=== PATIENT | male | born 1940 | race Caucasian/White ===

== ENCOUNTER 2017-05-26 22:05 | Emergency (ER) | payer BC ==
[~2017-05-26] VITALS: Ht 172.7 cm; Wt 117.0 kg
[~2017-05-26 22:05] MED LIST: BETIMOL5 M1 OU; COUMADIN7.5 MG PO; LOVENOX60 MG/0.6 SC; MYRBETRIQ25 MG PO; PANTOPRAZOLE SO40 MG PO; PLAVIX75 MG PO
--- OUTSIDE RECORDS SUMMARY | 2017-05-26 22:08 | XMS REPORT | Clinical Summary ---
Author Author [facility] Organization [facility] Address Unknown Phone Unavailable Care Team Providers Care Pharmacy General Manager Name Role Phone Yifan Nielsen MD PCP Allergies No Known Allergies Current Medications Prescription Sig. Disp. Refills Start End Date Status Date oxyCODone (ROXICODONE) 20 Take 20 mg by mouth every 0 12/19/19 Active MG tablet morning. 17 OXYCONTIN 30 mg Take 30 mg by mouth 0 12/19/19 Active tablet,oral nightly. 17 only,ext.rel.12 hr ER tablet pantoprazole (PROTONIX) Take 40 mg by mouth every 3 10/27/19 Active 40 MG EC tablet morning. 17 COUMADIN 5 mg tablet Take 5 mg by mouth daily. 3 12/18/19 Active Monitor INR at home and 17 take 5-7.5mg based on level. mirabegron (MYRBETIQ) 50 Take 50 mg by mouth Active mg tablet extended nightly. release 24 hr nitrofurantoin, Take 100 mg by mouth 2 0 12/27/19 Active macrocrystal-monohydrate, (two) times a day. Take 17 (MACROBID) 100 MG capsule for 14 days starting 12/26/16. citalopram (CeleXA) 20 MG Take 20 mg by mouth as 12/31/19 Active tablet needed. 17 clopidogrel (PLAVIX) 75 Take 75 mg by mouth 1 10/13/19 Active mg tablet nightly. 17 clotrimazole (LOTRIMIN) 1 Use small amount at 0 12/05/19 Active % cream night. 17 nitroglycerin (NITROMIST) Place 1 spray under the 0 11/10/19 Active 400 mcg/spray tongue as needed. As 17 aerosol,spray needed for chest pain. timolol (TIMOPTIC) 0.25 % Administer 1 drop to both 7 12/17/19 Active ophthalmic solution eyes nightly. 17 traMADol (ULTRAM) 50 mg Take 50 mg by mouth every 0 12/30/19 Active tablet 4 (four) hours as needed. 17 HYDROcodone-acetaminophen Take 1 tablet by mouth 60 tablet 11/12/19 12/12/19 (NORCO) 5-325 mg per every 4 (four) hours as 17 17 tablet needed for moderate pain for up to 30 days. Max Daily Amount: 6 tablets ciprofloxacin HCl (CIPRO) Take 250 mg by mouth 0 12/21/19 01/08/20 Discontin 250 MG tablet every 12 (twelve) hours. 17 17 ued Take for 7 days starting 12/20/16. testosterone 10 mg/0.5 Place 3 Act on the skin 2 11/11/19 04/01/20 Discontin gram /actuation gel in daily. To be replaced by 17 17 ued metered-dose pump seeds (Dr. Wesley Cardoso) Active Problems Problem Noted Date Anemia 01/05/2017 Osteoarthritis of spine with radiculopathy, lumbar region 11/11/2016 Status post lumbar spinal fusion 11/11/2016 H/O total hip arthroplasty 11/11/2016 Tendinitis of finger 08/11/2016 Trigger middle finger of right hand 02/25/2016 Encounters Date Type Specialty Care Team Description 04/21/2017 Office Visit Orthopedic Surgery Jas Shirley MD Trigger middle finger of right hand (Primary Dx);Tendinitis of finger 04/01/2017 [facility] Orthopedic Surgery Jas Shirley MD Encounter 04/01/2017 Anesthesia Orthopedic Surgery Luigi Jones, Event SOFT BOARDER 04/01/2017 Procedure Pass Orthopedic Surgery 04/01/2017 Surgery Orthopedic Surgery Jas Shirley MD RIGHT MIDDLE FINGER TRIGGER RELEASE AND ANY INDICATED PROCEDURES 03/23/2017 Office Visit Orthopedic Surgery Jas Shirley MD Trigger middle finger of right hand (Primary Dx);Tendinitis of finger 01/05/2017 [facility] General Internal Medicine Yaya Graham MD Iron deficiency anemia - Encounter due to chronic blood loss 01/07/2017 (Primary Dx) 11/24/2016 Telephone Neurosurgery Rafiq Kasper MD 11/20/2016 [facility] Radiology Rafiq Kasper MD Osteoarthritis of spine Encounter with radiculopathy, lumbar region;Status post lumbar spinal fusion 11/20/2016 Hospital Radiology Rafiq Kasper MD Osteoarthritis of spine Encounter with radiculopathy, lumbar region;Status post lumbar spinal fusion 11/11/2016 Office Visit Neurosurgery Rafiq Kasper MD Osteoarthritis of spine with radiculopathy, lumbar region (Primary Dx);Status post lumbar spinal fusion;H/O total hip arthroplasty, bilateral 11/11/2016 Procedure Pass Radiology 08/11/2016 Office Visit Orthopedic Surgery Jas Shirley MD Trigger middle finger of right hand (Primary Dx);Tendinitis of finger;Pain of finger of right hand after 05/25/2016 Family History Medical History Relation Name Comments Heart attack Father Cancer Mother oral Other Mother Heart problems Peripheral vascular Mother disease Relation Name Status Comments Father Mother Social History Tobacco Use Types Packs/Day Years Used Date Never Smoker Alcohol Use Drinks/Week oz/Week Comments Yes 1 Cans of 0.6 beer Sex Assigned at Date Recorded Not on file Last Filed Vital Signs Vital Sign Reading Time Taken Blood Pressure 100/55 04/01/2017 9:15 AM [facility] Pulse 69 04/01/2017 9:25 AM [facility] Temperature 36.4 C (97.5 F) 04/01/2017 9:25 AM [facility] Respiratory Rate 16 04/01/2017 9:25 AM [facility] Oxygen Saturation 94% 04/01/2017 9:25 AM [facility] Inhaled Oxygen - - Concentration Weight 107 kg (234 lb 12.8 oz) 01/05/2017 4:55 PM CDT Height 172.7 cm (5' 8") 04/01/2017 7:44 AM [facility] Body Mass Index - - Plan of Treatment Date Type Specialty Care Team Description 06/02/2017 Office Visit Orthopedic Surgery Param Oliva MD [address] [place] [phone] Health Maintenance Due Date Last Done Comments ZOSTER VACCINE 1999 PNEUMOCOCCAL 08/23/2004 POLYSACCHARIDE VACCINE AGE 65 AND OVER PNEUMOCOCCAL-13 08/23/2004 INFLUENZA VACCINE 11/17/2016 02/26/2016, 03/06/2014 Procedures Procedure Name Priority Date/Time Associated Diagnosis Comments ANESTHESIA PERIPHERAL Routine 04/01/2017 BLOCK 8:12 AM [facility] P[facility]ER Procedure Note - Luigi Jones CRNA - 04/01/2017 8:11 AM [facility] Peripheral Block Performed by: LUIGI JONES Authorized by: CORINNE GUY Patient location: OR 5. Start Time: 04/01/2017 8:11 AM End Time: 04/01/2017 8:14 AM Reason for Block: at surgeon's request Staff: Dc mejia: CORINNE GUY Performed by: Anesthesikarol mejia Preprocedu re: patient identified , IV checked, site and side verified, risks and benefits discussed, procedure verified, surgical consent complete, patient position confirmed, monitors and equipment checked, pre-op evaluation complete and site marked Time Out Performed: 8:10 AM Peripheral Nerve Block: Patient Position: Supine Prep: alcohol swabs Monitoring : Heart rate, CO2, continuous pulse oximetry and blood pressure monitoring Block Type: Alia block Laterality : Right Injection Technique: Single injection Needle: Needle Gauge: 22 G Assessment : Injection Assessment : No symptoms of intraneura l/intraven ous injection Paresthesi a Pain: None Heart Rate Change: No Slow Fractionat ed Injection: Yes Block outcome: No apparent complicati ons, patient comfortabl e and patient tolerated procedure well Notes: R-UE esmarc exsang/margarita r upx2/IV lidocaine RIGHT MIDDLE FINGER 04/01/2017 RIGHT MIDDLE TRIGGER TRIGGER RELEASE AND ANY 7:30 AM [facility] FINGER M65.331 INDICATED PROCEDURES NV INJECT TENDON Routine 08/11/2016 Trigger middle finger of Results for this SHEATH/LIGAMENT 9:58 AM CDT right hand procedure are in the Tendinitis of finger results section. after 05/25/2016 Results * Partial thromboplastin time, activated (04/01/2017 2:15 AM) Component Value Ref Range PTT 33.0 23.0 - 36.0 sec Comment: PTT therapeutic range for unfractionated heparin is 61.0-112.0 seconds which corresponds to Anti-Xa 0.3-0.7 U/ml. Specimen Performing Laboratory Blood [facility] DEPARTMENT OF PATHOLOGY AND GENOMIC MEDICINE [address] [place] [address] * Prothrombin time with INR (04/01/2017 2:15 AM) Only the most recent of 2 results within the time period is included. Component Value Ref Range Prothrombin time 14.7 12.0 - 15.0 sec INR 1.1 Comment: The International Normalized Ratio (INR) is a therapeutic monitoring tool for patients who are stable on oral anticoagulant therapy. An INR of 2.0-3.0 is suggested for deep vein thrombosis/pulmonary embolism. Specimen Performing Laboratory Blood [facility] DEPARTMENT OF PATHOLOGY AND GENOMIC MEDICINE [address] [place] [address] * Hemoglobin & hematocrit (01/07/2017 5:30 AM) Component Value Ref Range HGB 8.2 (L) 14.0 - 18.0 g/dL HCT 27.1 (L) 41.0 - 51.0 % Specimen Performing Laboratory Blood [facility] DEPARTMENT OF PATHOLOGY AND [facility] [address] [place] [address] * Pv duplex venous lower extremity (01/06/2017 8:49 AM) Specimen Performing Laboratory [facility] [address] [place] [address] Narrative Vascular Ultrasound Laboratory Lower Extremity Venous Report [address] [place] [address] Pat.Name:TAYLOR SHEN Pat.ID:[id number] St.Date: 01/06/2017 Refer.MD:YAYA GRAHAM MD Exam Time: 8:11:00 AMStudy Type:LE Venous Weight:234lb DOBAge:1940 ,76Y Sex: MALESonogrphr: Ashley Carrasco RVT Pat. Stat.:Inpatient Room:[address] TapeVol: , [facility] - 4: [address] Echo Event ID:[id number] Order ID:[id number] Reason for Study:Bilateral leg swelling. Race:C SUMMARY: DUPLEX SCAN OBSERVATIONS Deep VeinsSuperficial Veins RightLeft RightLeft EIV GSV (prox) NormalNormal CFV Normal Normal (above knee) Femoral Normal Normal GSV (dist) Normal Normal Profunda Normal Normal (below knee) Popliteal Normal Normal PT (prox) Normal NormalSSV Normal Normal PT (dist) Normal Normal Peroneal Normal Not Visualized RIGHT: There is normal compressibility with no evidence of echogenic material noted within the lumen of the visualized veins.Colorflow and Doppler signals are normal. LEFT: There is normal compressibility with no evidence of echogenic material noted within the lumen of the visualized veins. Colorflow and Doppler signals are normal. Peroneal vein is not well visualized. PRELIMINARY FINDINGS 1. No evidence of deep venous thrombosis of the visualized veins. PHYSICIAN INTERPRETATION Venous examination of the both lower extremities demonstrated no evidence of venous thrombosis in the visualized veins. Signed 01/06/2017 11:02 AM Berto Morejon MD, RPVI Procedure Note Interface, Radiology Results In - 01/06/2017 11:03 AM CDT Vascular Ultrasound Laboratory Lower Extremity Venous Report [address] [place] [address] Pat.Name: TAYLOR SEHN.ID: [id number] .Date: 01/06/2017 Refer.MD: YAYA GRAHAM MD Exam Time: 8:11:00 AM Study Type:LE Venous Weight: 234lb Age: 5 1940,76Y Sex: MALE Sonogrphr: Ashley Carrasco RVT Pat. Stat.:Inpatient Room: [address] Tape Vol: YM, CPT - 4: [id number] Echo Event ID:[id number] Order ID: [id number] Reason for Study:Bilateral leg swelling. Race: C SUMMARY: DUPLEX SCAN OBSERVATIONS Deep Veins Superficial Veins Right Left Right Left EIV GSV (prox) Normal Normal CFV Normal Normal (above knee) Femoral Normal Normal GSV (dist) Normal Normal Profunda Normal Normal (below knee) Popliteal Normal Normal PT (prox) Normal Normal SSV Normal Normal PT (dist) Normal Normal Peroneal Normal Not Visualized RIGHT: There is normal compressibility with no evidence of echogenic material noted within the lumen of the visualized veins. Colorflow and Doppler signals are normal. LEFT: There is normal compressibility with no evidence of echogenic material noted within the lumen of the visualized veins. Colorflow and Doppler signals are normal. Peroneal vein is not well visualized. PRELIMINARY FINDINGS 1. No evidence of deep venous thrombosis of the visualized veins. PHYSICIAN INTERPRETATION Venous examination of the both lower extremities demonstrated no evidence of venous thrombosis in the visualized veins. Signed 01/06/2017 11:02 AM Berto Morejon MD, RPVI * Transfuse RBC (01/06/2017 8:03 AM) * Manual differential (01/06/2017 7:20 AM) Component Value Ref Range Manual differential PERFORMED Neutrophils 84.0 (H) 39.0 - 69.0 % Lymphocytes 7.0 (L) 25.0 - 45.0 % Monocytes 7.0 0.0 - 10.0 % Eosinophils 2.0 0.0 - 5.0 % Basophils 0.0 0.0 - 1.0 % Metamyelocytes 0 % Promyelocytes 0 % Platelet slide review Juan Antonio adequate Anisocytosis Moderate Polychromasia Moderate Ovalocytes Moderate Specimen Performing Laboratory [facility] DEPARTMENT OF PATHOLOGY AND GENOMIC MEDICINE [address] [place] [address] * CBC with platelet and differential (01/06/2017 7:20 AM) Only the most recent of 2 results within the time period is included. Component Value Ref Range WBC 5.41 4.50 - 11.00 k/uL RBC 2.74 (L) 4.40 - 6.00 m/uL HGB 7.9 (L) 14.0 - 18.0 g/dL HCT 25.9 (L) 41.0 - 51.0 % MCV 94.5 82.0 - 100.0 fL MCH 28.8 27.0 - 34.0 pg MCHC 30.5 (L) 31.0 - 37.0 g/dL RDW - SD 54.2 37.0 - 55.0 fL MPV 10.9 8.8 - 13.2 fL Platelet count 179 150 - 400 k/uL Nucleated RBC 0.00 /100 WBC Neutrophils 84.0 (H) 39.0 - 69.0 % Lymphocytes 7.0 (L) 25.0 - 45.0 % Monocytes 7.0 0.0 - 10.0 % Eosinophils 2.0 0.0 - 5.0 % Basophils 0.0 0.0 - 1.0 % Specimen Performing Laboratory Blood [facility] DEPARTMENT OF PATHOLOGY AND GENOMIC MEDICINE [address] [place] [address] * Estimated GFR (01/06/2017 4:00 AM) Component Value Ref Range GFR Non Af Amer 65 mL/min/1.73 m2 GFR Af Amer 79 mL/min/1.73 m2 Comment: Chronic kidney disease: <60 mL/min/1.73m2 Kidney failure: <15 mL/min/1.73m2 The estimated GFR is calculated from the IDMS-traceable Modification of Diet in Renal Disease Equation. The accuracy of the calculation is poor when the creatinine is normal. Calculated values >90 mL/min/1.73m2 are not reported. This equation has not been validated in children (<18 years), women, the elderly (>70 years), or ethnic groups other than Caucasians and Americans. Specimen Performing Laboratory Plasma specimen [facility] DEPARTMENT OF PATHOLOGY AND GENOMIC MEDICINE [address] [place] [address] * Basic metabolic panel (01/06/2017 4:00 AM) Component Value Ref Range Sodium 140 135 - 148 mEq/L Potassium 4.1 3.5 - 5.0 mEq/L Chloride 102 98 - 112 mEq/L CO2 24 24 - 31 mEq/L Anion gap 14 7 - 15 mEq/L Comment: Starting from July , anion gap calculation no longer incorporates potassium. Please note the change. BUN 14 8 - 23 mg/dL Creatinine 1.1 0.7 - 1.2 mg/dL Glucose 110 (H) 65 - 99 mg/dL Calcium 8.7 (L) 8.8 - 10.2 mg/dL Specimen Performing Laboratory Plasma specimen [facility] DEPARTMENT OF PATHOLOGY AND GENOMIC MEDICINE [address] [place] [address] * Occult blood, stool (01/06/2017 3:00 AM) Component Value Ref Range Occult blood, stool Negative for occult blood. Comment: Specimen Information Specimen Source: Stool Specimen Site: Nonpreserved Specimen Performing Laboratory Stool - Nonpreserved [facility] DEPARTMENT OF PATHOLOGY AND [facility] [address] [place] [address] * Urinalysis screen and microscopy, with reflex to culture (01/05/2017 8:26 PM) Component Value Ref Range Specimen site Clean catch Color, UA Straw Appearance, UA Clear Specific gravity, UA 1.009 1.001 - 1.035 pH, UA 7.0 5.0 - 8.5 Protein, UA Negative Negative Glucose, UA Negative Negative Ketones, UA Negative Negative Bilirubin, UA Negative Negative Blood, UA Negative Negative Nitrite, UA Negative Negative Urobilinogen, UA <2.0 <2.0 Leukocyte esterase, UA Large (A) Negative Epithelial cells, UA <1 /HPF WBC, UA 120 (H) 0 - 1 /HPF RBC, UA 2 (H) 0 - 1 /HPF Bacteria, UA None seen None seen Yeast, UA None seen Yeast with pseudohyphae, None seen UA Specimen Performing Laboratory Urine [facility] DEPARTMENT OF PATHOLOGY AND [facility] [address] [place] [address] * Gram stain (01/05/2017 8:26 PM) Component Value Ref Range Gram stain result Few WBC's No organisms seen Comment: Specimen Information Specimen Source: Urine Specimen Site: See UA Specimen Performing Laboratory Urine [facility] DEPARTMENT OF PATHOLOGY [facility] [address] [place] [address] * Prepare RBC, 2 Units (01/05/2017 8:26 PM) Component Value Ref Range Product name Red Blood Cells -1, Leukored Unit number [id number] Product code [id number] Dispense status Transfused Blood expiration date 20170205 Blood type code 5100 Blood type O POSITIVE Product name Red Blood Cells -1, Leukored Unit number [id number] Product code [id number] Dispense status Transfused Blood expiration date 20170205 Blood type code 5100 Blood type O POSITIVE Specimen Performing Laboratory [facility] DEPARTMENT OF PATHOLOGY [facility] [address] [place] [address] * Type and screen (01/05/2017 8:26 PM) Component Value Ref Range ABO grouping O Rh type POS Antibody screen (gel) NEG Specimen Performing Laboratory Blood [facility] DEPARTMENT OF PATHOLOGY [facility] [address] [place] [address] * Urine culture (01/05/2017 8:26 PM) Component Value Ref Range Urine culture isolate Gram negative rods <10-1 cfu/ml (A) Comment: Specimen Information Specimen Source: Urine Specimen Site: See UA Urine culture isolate Mixed Gram positive damián 10-5 cfu/ml (A) Specimen Performing Laboratory Urine [facility] DEPARTMENT OF PATHOLOGY AND GENOMIC MEDICINE [address] [place] [address] * XR Lumbar Spine 2 Or 3 Vw (11/20/2016 11:21 AM) Specimen Performing [facility] [address] [place] [address] Narrative EXAMINATION: XR LUMBAR SPINE 2 OR 3 VW CLINICAL HISTORY: M47.26 Other spondylosis with radiculopathylumbar region, Z98.1 Arthrodesis status, FOLLOW UP LUMBAR SPINE FUSION COMPARISON:12/14/2014 IMPRESSION: 3 views lumbar spine are interpreted. No significant interval change is seen. There is mild convex right scoliotic curvature of the upper lumbar spine. Again noted is posterior fusion involving L2-L5. Pedicle screws are connected with vertical rods. Interbody fusions of L2-L5 are also again seen. Majority is difficult to assess. Some calcific density is noted over each of the interbody levels. Laminectomies of L2, L3, and L4 are again seen. Alignment appears anatomic. Prominent disc degenerative changes are present in L1-2. There is collapse of the L5-S1 interbody space. 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 [id number] Procedure Note Interface, Radiology Results Incoming - 11/20/2016 11:43 AM CDT EXAMINATION: XR LUMBAR SPINE 2 OR 3 VW CLINICAL HISTORY: M47.26 Other spondylosis with radiculopathy lumbar region, Z98.1 Arthrodesis status, FOLLOW UP LUMBAR SPINE FUSION COMPARISON: 12/14/2014 IMPRESSION: 3 views lumbar spine are interpreted. No significant interval change is seen. There is mild convex right scoliotic curvature of the upper lumbar spine. Again noted is posterior fusion involving L2-L5. Pedicle screws are connected with vertical rods. Interbody fusions of L2-L5 are also again seen. Majority is difficult to assess. Some calcific density is noted over each of the interbody levels. Laminectomies of L2, L3, and L4 are again seen. Alignment appears anatomic. Prominent disc degenerative changes are present in L1-2. There is collapse of the L5-S1 interbody space. 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 [id number] * MRI Lumbar Spine Wo Contrast (11/20/2016 10:24 AM) Specimen Performing Laboratory [facility] [address] [place] [address] Narrative EXAMINATION: MRI LUMBAR SPINE WO CONTRAST CLINICAL HISTORY: M47.26 Other spondylosis with radiculopathylumbar region, Z98.1 Arthrodesis status, FOLLOW UP LUMBAR SPINE FUSION COMPARISON:Lumbar myelogram 06/22/2014 TECHNIQUE: Multiplanar multisequence nonenhanced MRI examination was performed of the Lumbar spine. FINDINGS: For the purposes of this report, 5 lumbar type vertebral bodies are assumed and numbered according to the lumbosacral and vertebral morphology. Postsurgical changes of posterior spinal fusion L2-L5 with bilateral rods and screws and decompressive laminectomies L2-L4. Stable alignment within the area of fusion with grade 1 anterolisthesis L4 on L5. No degenerative endplate edema is identified. Fatty filum terminale. Vertebral body heights are maintained without acute fracture.No suspicious osseous lesions. Conus medullaris terminates at the level of L2. Probable seroma within the laminectomy bed measuring 1.2 x 1.4 x 7 cm without mass effect on the thecal sac. Soft tissues shows no mass, adenopathy or aneurysm. Axial images through the disc spaces demonstrate the following: L1-L2: No significant posterior disc disease or spinal canal stenosis. Bilateral facet arthrosis contributes to moderate left neural foraminal stenosis. Patent right neural foramen. L2-L3: No significant posterior disc disease or spinal canal stenosis. Decompressive laminectomy. Mild bilateral neural foraminal stenosis. L3-L4: Decompressive laminectomy patency of the spinal canal. Mild right and at least moderate left neural foraminal stenosis. Susceptibility artifact limits evaluation for nerve impingement. L4-L5: No significant posterior disc disease or spinal canal stenosis. Moderate bilateral neural foraminal stenosis secondary to endplate spurs and facet arthrosis. L5-S1: No significant posterior disc disease the spinal canal stenosis. Mild bilateral neural foraminal narrowing. IMPRESSION: 1. Postsurgical changes of posterior spinal fusion L2-L5 with decompressive laminectomies. 2. Patent spinal canal at all lumbar levels. Multilevel mild to moderate neural foraminal stenoses which are most pronounced on the left at L3-L4 and bilaterally at L4-L5. [id number] Procedure Note Hm Interface, Radiology Results Incoming - 11/20/2016 11:30 AM CDT EXAMINATION: MRI LUMBAR SPINE WO CONTRAST CLINICAL HISTORY: M47.26 Other spondylosis with radiculopathy lumbar region, Z98.1 Arthrodesis status, FOLLOW UP LUMBAR SPINE FUSION COMPARISON: Lumbar myelogram 06/22/2014 TECHNIQUE: Multiplanar multisequence nonenhanced MRI examination was performed of the Lumbar spine. FINDINGS: For the purposes of this report, 5 lumbar type vertebral bodies are assumed and numbered according to the lumbosacral and vertebral morphology. Postsurgical changes of posterior spinal fusion L2-L5 with bilateral rods and screws and decompressive laminectomies L2-L4. Stable alignment within the area of fusion with grade 1 anterolisthesis L4 on L5. No degenerative endplate edema is identified. Fatty filum terminale. Vertebral body heights are maintained without acute fracture. No suspicious osseous lesions. Conus medullaris terminates at the level of L2. Probable seroma within the laminectomy bed measuring 1.2 x 1.4 x 7 cm without mass effect on the thecal sac. Soft tissues shows no mass, adenopathy or aneurysm. Axial images through the disc spaces demonstrate the following: L1-L2: No significant posterior disc disease or spinal canal stenosis. Bilateral facet arthrosis contributes to moderate left neural foraminal stenosis. Patent right neural foramen. L2-L3: No significant posterior disc disease or spinal canal stenosis. Decompressive laminectomy. Mild bilateral neural foraminal stenosis. L3-L4: Decompressive laminectomy patency of the spinal canal. Mild right and at least moderate left neural foraminal stenosis. Susceptibility artifact limits evaluation for nerve impingement. L4-L5: No significant posterior disc disease or spinal canal stenosis. Moderate bilateral neural foraminal stenosis secondary to endplate spurs and facet arthrosis. L5-S1: No significant posterior disc disease the spinal canal stenosis. Mild bilateral neural foraminal narrowing. IMPRESSION: 1. Postsurgical changes of posterior spinal fusion L2-L5 with decompressive laminectomies. 2. Patent spinal canal at all lumbar levels. Multilevel mild to moderate neural foraminal stenoses which are most pronounced on the left at L3-L4 and bilaterally at L4-L5. [id number] * Hand/Upper Extremity Injection/Arthrocentesis (08/11/2016 9:58 AM) Elliott Shirley MD 08/11/20169:58 AM Hand/Upper Extremity Injection/Arthrocentesis Date/Time: 08/11/2016 9:22 AM Consent given by: patient Supporting Documentation Indications: pain Procedure Details Condition: trigger finger Site: R long finger Location: - R long A1 Right side: Needle size: 25 G Approach: anterior Right long finger medications administered: 6 mg betamethasone acet,sod phos 6 mg/mL; 1 mL lidocaine 10 mg/mL (1 %) Patient tolerance: patient tolerated the procedure well with no immediate complications Injection Type: tendon sheath after 05/25/2016 Insurance Payer Benefit Subscriber ID Type Phone Address Plan / Group BCBS BCBS [id number] PPO VASHTI PPO/SON LARES PPO
--- NOTE | 2017-05-26 22:58 | Diagnostic Imaging Report ---
EXAMINATION: Head CT without contrast. HISTORY:Status post fall. COMPARISON:None. TECHNIQUE: Multidetector axial images were obtained from the foramen magnum to the vertex without contrast. The images were reconstructed using brain and bone algorithms. Thin section brain images were reformatted into coronal and sagittal planes. Intravenous contrast: None IMAGE QUALITY: Acceptable. FINDINGS: Skull/scalp: Small right frontal scalp edema/hematoma. Nonspecific few punctate superficial radiopaque densities in the frontal scalp may represent foreign body or debris. No acute depressed or displaced calvarial fracture. Parenchyma: Nonspecific few, scattered supratentorial white matter hypodensity are likely related to small vessel ischemic changes. No acute hemorrhage, mass or acute major vascular territorial infarct. Arteries: Atherosclerotic calcification in bilateral carotid siphon. Dural sinuses: No abnormal density suggestive of thrombosis. Ventricles: Mild compensated dilatation due to volume loss. No hydrocephalus. Extra-axial spaces: No abnormal density. Brain volume: Normal for age. Craniocervical junction: No mass, Chiari malformation, or basilar invagination. Sella: No mass. Paranasal/mastoid sinuses: Near complete opacification of the visualized portion of right maxillary sinus. Moderate mucosal thickening in bilateral anterior ethmoid air cells and left frontal sinus. IMPRESSION: 1. Small right frontal scalp soft tissue edema/hematoma. No acute fracture. 2. No acute posttraumatic intracranial abnormality. Signed by: Dr. Monica Reich M.D. on 05/26/2017 10:55 PM
== END 2017-05-26 23:08 | disposition home or self-care (01) ==
LOC: ER 22:05
DX: S01.01XA Laceration without foreign body of scalp, initial encounter (principal); W01.0XXA Fall on same level from slipping, tripping and stumbling without subsequent striking against object, initial encounter; Y93.01 Activity, walking, marching and hiking; Y92.008 Other place in unspecified non-institutional (private) residence as the place of occurrence of the external cause; I48.91 Unspecified atrial fibrillation; I25.10 Atherosclerotic heart disease of native coronary artery without angina pectoris; K21.9 Gastro-esophageal reflux disease without esophagitis; Z87.19 Personal history of other diseases of the digestive system
CPT/HCPCS: 70450; 99283

== ENCOUNTER 2017-07-07 11:31 | Emergency (ER) | payer BC ==
[~2017-07-07] VITALS: Ht 172.7 cm; Wt 104.3 kg
--- OUTSIDE RECORDS SUMMARY | 2017-07-07 11:35 | XMS REPORT ---
Author Author [facility] Address Unknown Phone Unavailable Care Team Providers Care Media Strategist Name Role Phone ALEKSANDR SMITH Unavailable Unavailable Problems This patient has no known problems. Allergies, Adverse Reactions, Alerts This patient has no known allergies or adverse reactions. Medications This patient has no known medications. Results Test Description Test Time Test Comments Text Results Atomic Results Result Comments CT BRAIN WO [place] [address] Patient Name: TAYLOR VALDERRAMA MR #: [id number] : 1940 Age/Sex: 76/M Req # : [id number] Adm Physician: Ordered by: ALEKSANDR SMITH MD Report # : [id number] Location: ER Room/Bed: Procedure: [id number] CT/CT BRAIN WO Exam Date: 05/26/17 Exam Time: 2228 REPORT STATUS: Signed EXAMINATION: Head CT without contrast. HISTORY:Status post fall. COMPARISON:None. TECHNIQUE: Multidetector axial images were obtained from the foramen magnum to the vertex without contrast. The images were reconstructed using brain and bone algorithms. Thin section brain images were reformatted into coronal and sagittal planes. Intravenous contrast: None IMAGE QUALITY: Acceptable. FINDINGS: Skull/scalp: Small right frontal scalp edema/ hematoma. Nonspecific few punctate superficial radiopaque densities in the frontal scalp may represent foreign body or debris. No acute depressed or displaced calvarial fracture. Parenchyma: Nonspecific few, scattered supratentorial white matter hypodensity are likely related to small vessel ischemic changes. No acute hemorrhage, mass or acute major vascular territorial infarct. Arteries: Atherosclerotic calcification in bilateral carotid siphon. Dural sinuses: No abnormal density suggestive of thrombosis. Ventricles: Mild compensated dilatation due to volume loss. No hydrocephalus. Extra-axial spaces: No abnormal density. Brain volume: Normal for age. Craniocervical junction: No mass, Chiari malformation, or basilar invagination. Sella: No mass. Paranasal/ mastoid sinuses: Near complete opacification of the visualized portion of right maxillary sinus. Moderate mucosal thickening in bilateral anterior ethmoid air cells and left frontal sinus. IMPRESSION: 1. Small right frontal scalp soft tissue edema/hematoma. No acute fracture. 2. No acute posttraumatic intracranial abnormality. Signed by: Dr. Monica Mccoy M.D. on 05/26/2017 10:55 PM Dictated By: MONICA MCCOY MD 1855 Transcribed By: MELQUIADES on 05/26/173 COPY TO: ALEKSANDR SMITH MD
--- OUTSIDE RECORDS SUMMARY | 2017-07-07 11:35 | XMS REPORT | Continuity of Care Document ---
Author Author [facility] Organization [facility] Address [address] [place] [address] Phone Unavailable Care Team Providers Care Electronics Detail Draftsperson Name Role Phone NONSTAFF PCP Unavailable Insurance Providers Guarantor Toñito Shen Address [address] [place] [address] Email [facility] Policy Number [id number] Subscriber's Name Daisy Shen Relationship 01 Group Number [id number] Group Name [employer] Effective Date 06 Advance Directives Directive Response Recorded Date/Time Does the patient have an advance directive? No 04/18/13 2:59pm If yes, is advance directive on file with [facility]? No 12/21/12 8:11am If not on file with [facility] will patient provide a copy? No 12/21/12 8:11am Do you have a Directive to Physician? No 05/26/17 10:04pm Do you have a Medical Power of Electrical Laboratory Technician? No 05/26/17 10:04pm Do you have an out of hospital Do Not Resuscitate Order? No 05/26/17 10:04pm Do you have any special needs we should be aware of? No 05/26/17 10:04pm Do you have a support person here with you today? Yes 05/26/17 10:04pm Did patient receive Notice of Privacy Practices? Yes 05/26/17 10:04pm Did patient receive patient rights and responsibilities? Yes 05/26/17 10:04pm Problems No problem information available. Medications Current Home Medications Medication Dose Units Route Directions Days Qty Instructions Start Date Enoxaparin Sodium (Lovenox) 60 Mg/0.6 Ml Inj 60 Mg Subcutaneously Twice A Day 7 Syr Mirabegron (Myrbetriq) 25 Mg Tab.er.24h 25 Mg Oral Daily Pantoprazole Sodium (Protonix) 40 Mg Tablet.dr 40 Mg Oral Daily Timolol (Betimol) 5 Ml Drops 1 Drop Each Eye Daily Past Home Medications Medication Directions Ordered Status Clopidogrel Bisulfate (Plavix) 75 Mg Tablet, 75 Mg Oral Daily Discontinued Warfarin Sodium (Coumadin) 7.5 Mg Tablet, 7.5 Mg Oral Daily X 2 Discontinued Social History Smoking Status Start Date Stop Date Never Smoker Hospital Discharge Instructions No hospital discharge instruction information available. Plan of Care Discharge Date 05/26/17 11:08pm Disposition HOME, SELF-CARE Condition at Discharge Stable Instructions/Education Provided Contusion Laceration Fall Prevention Forms Provided Work/School Excuse Prescriptions See Medication Section Additional Instructions/Education DO NOT SOAK HEAD IN WATER, GLUE WILL FALL OFF BY ITSELF FOLLOW UP WITH YOUR DOCTOR RETURN TO THE ER IF SYMPTOMS WORSEN Functional Status No functional status information available. Allergies, Adverse Reactions, Alerts No known allergies. Immunizations No immunization information available. Vital Signs Acute Vital Signs Vital Response Date/Time Height 5 ft 8 in 05/26/2017 10:22pm Weight 258 lb 05/26/2017 10:22pm Body Mass Index 39.2 kg/m^2 05/26/2017 10:22pm Results No relevant diagnostic test, laboratory data and/or discharge summary information available. Procedures Procedure Status Date Provider(s) Computed tomography of brain without radiopaque contrast Active 05/26/17 ALEKSANDR SMITH MD Encounters Encounter Location Arrival/Admit Date Discharge/Depart Date Attending Provider Departed Emergency Room [facility] 05/26/17 10:05pm 05/26 11:08pm ALEKSANDR SMITH MD
--- OUTSIDE RECORDS SUMMARY | 2017-07-07 11:35 | XMS REPORT | Clinical Summary ---
Author Author [facility] Address Unknown Phone Unavailable Care Team Providers Care Utility Locate Technician Name Role Phone Yifan Nielsen MD PCP [...] Trigger middle finger of right hand (Primary Dx); Tendinitis of finger 04/01/2017 [facility] Orthopedic Surgery Jas Shirley MD Encounter 04/01/2017 Anesthesia Orthopedic Surgery Luigi Jones, Event TALENT ACQUISITION ADMINISTRATOR 04/01/2017 Procedure Pass Orthopedic Surgery 04/01/2017 Surgery Orthopedic Surgery Jas Shirley MD RIGHT MIDDLE FINGER TRIGGER RELEASE AND ANY INDICATED PROCEDURES 03/23/2017 Office Visit Orthopedic Surgery Jas Shirley MD Trigger middle finger of right hand (Primary Dx); Tendinitis of finger 01/05/2017 [facility] General Internal Medicine Yaya Graham MD Iron deficiency anemia - Encounter due to chronic blood loss 01/07/2017 (Primary Dx) 11/24/2016 Telephone Neurosurgery Rafiq Kasper MD 11/20/2016 [facility] Radiology Rafiq Kasper MD Osteoarthritis of spine Encounter with radiculopathy, lumbar region; Status post lumbar spinal fusion 11/20/2016 Hospital Radiology Rafiq Kasper MD Osteoarthritis of spine Encounter with radiculopathy, lumbar region; Status post lumbar spinal fusion 11/11/2016 Office Visit Neurosurgery Rafiq Kasper MD Osteoarthritis of spine with radiculopathy, lumbar region (Primary Dx); Status post lumbar spinal fusion; H/O total hip arthroplasty, bilateral 11/11/2016 Procedure Pass Radiology 08/11/2016 Office Visit Orthopedic Surgery Jas Shirley MD Trigger middle finger of right hand (Primary Dx); Tendinitis of finger; Pain of finger of right hand after 07/06/2016 Family History Medical History Relation Name Comments [...] Taken Blood Pressure 100/55 04/01/2017 9:15 AM VB NET DEVELOPER Pulse 69 04/01/2017 9:25 AM VB NET DEVELOPER Temperature 36.4 C (97.5 F) 04/01/2017 9:25 AM VB NET DEVELOPER Respiratory Rate 16 04/01/2017 9:25 AM VB NET DEVELOPER Oxygen Saturation 94% 04/01/2017 9:25 AM VB NET DEVELOPER Inhaled Oxygen - - Concentration Weight 107 kg (234 lb 12.8 oz) 01/05/2017 4:55 PM CDT Height 172.7 cm (5' 8") 04/01/2017 7:44 AM VB NET DEVELOPER Body Mass Index - - Plan of Treatment Health Maintenance Due Date Last Done Comments ZOSTER VACCINE 1999 PNEUMOCOCCAL 08/23/2004 POLYSACCHARIDE VACCINE AGE 65 AND OVER PNEUMOCOCCAL-13 08/23/2004 INFLUENZA VACCINE 11/17/2016 02/26/2016, 03/06/2014 Procedures Procedure Name Priority Date/Time Associated Diagnosis Comments ANESTHESIA PERIPHERAL Routine 04/01/2017 BLOCK 8:12 AM VB NET DEVELOPER Procedure Note - Luigi Jones CRNA - 04/01/2017 8:11 AM VB NET DEVELOPER Peripheral Block Performed by: LUIGI JONES Authorized by: CORINNE GUY Patient location: OR 5. Start Time: 04/01/2017 8:11 AM End Time: 04/01/2017 8:14 AM Reason for Block: at surgeon's request Staff: Dc nelsont: CORINNE GUY Performed by: Anesthesio roberto Preprocedu re: patient identified , IV checked, site and side verified, risks and benefits discussed, procedure verified, surgical consent complete, patient position confirmed, monitors and equipment checked, pre-op evaluation complete and site marked Time Out Performed: 7 8:10 AM Peripheral Nerve Block: Patient Position: Supine Prep: alcohol swabs Monitoring : Heart rate, CO2, continuous pulse oximetry and blood pressure monitoring Block Type: [place] block Laterality : Right Injection Technique: Single [...] TRIGGER TRIGGER RELEASE AND ANY 7:30 AM VB NET DEVELOPER FINGER M65.331 INDICATED PROCEDURES [place] INJECT TENDON Routine 08/11/2016 Trigger middle finger of Results for this SHEATH/LIGAMENT 9:58 AM CDT right hand procedure are in the Tendinitis of finger results section. after 07/06/2016 Results * Partial thromboplastin time, activated (04/01/2017 2:15 AM) Component Value Ref Range PTT 33.0 23.0 - 36.0 sec Comment: PTT therapeutic range for unfractionated heparin is 61.0-112.0 seconds which corresponds to Anti-Xa 0.3-0.7 U/ml. Specimen Performing Laboratory Blood [facility] DEPARTMENT OF PATHOLOGY AND GENOMIC MEDICINE [address] [place] [address] * Prothrombin time with INR (04/01/2017 2:15 [...] vein thrombosis/pulmonary embolism. Specimen Performing Laboratory Blood [facility] DEPARTMENT OF PATHOLOGY AND GENOMIC MEDICINE [address] [place] [address] * Hemoglobin & hematocrit (01/07/2017 5:30 AM) Component Value Ref Range HGB 8.2 (L) 14.0 - 18.0 g/dL HCT 27.1 (L) 41.0 - 51.0 % Specimen Performing Laboratory Blood [facility] DEPARTMENT OF PATHOLOGY AND GENOMIC MEDICINE [address] [place] [address] * Pv duplex venous lower extremity (01/06/2017 8:49 AM) Specimen Performing Laboratory [facility] [address] [place] [address] Narrative Vascular Ultrasound Laboratory Lower Extremity Venous Report [address] [place] [address] Pat.Name:TAYLOR SHEN Pat.ID:[id number] St.Date: 01/06/2017 Refer.MD:YAYA GRAHAM MD Exam Time: 8:11:00 AMStudy Type:LE Venous Weight:234lb DOBAge:1940 ,76Y Sex: MALESonogrphr: Ashley Carrasco RVT Pat. Stat.:Inpatient Room:[address] TapeVol: , CPT - 4: 67064 Echo Event ID:[id number] Order ID:[id number] Reason for Study:Bilateral leg swelling. Race:C SUMMARY: [...] Ultrasound Laboratory Lower Extremity Venous Report [address] [place] [address] Pat.Name: TAYLOR SHEN.ID: [id number] .Date: 01/06/2017 Refer.MD: YAYA GRAHAM MD Exam Time: 8:11:00 AM Study Type:LE Venous Weight: 234lb Age: 5 1940,76Y Sex: MALE Sonogrphr: JIAN Parker. Stat.:Inpatient Room: [address] Vol: YM, CPT - 4: 32530 Echo Event ID:[id number] Order ID: [id number] Reason for Study:Bilateral leg swelling. Race: C [...] Polychromasia Moderate Ovalocytes Moderate Specimen Performing Laboratory [facility] DEPARTMENT OF PATHOLOGY AND GENOMIC MEDICINE [address] [place] [address] * CBC with platelet and differential (01/06/2017 [...] - 1.0 % Specimen Performing Laboratory Blood [facility] DEPARTMENT OF PATHOLOGY AND GENOMIC MEDICINE [address] [place] [address] * Estimated GFR (01/06/2017 4:00 AM) Component [...] and Americans. Specimen Performing Laboratory Plasma specimen [facility] DEPARTMENT OF PATHOLOGY AND GENOMIC MEDICINE [address] [place] [address] * Basic metabolic panel (01/06/2017 4:00 AM) [...] 10.2 mg/dL Specimen Performing Laboratory Plasma specimen [facility] DEPARTMENT OF PATHOLOGY AND [facility] MEDICINE [address] [place] [address] * Occult blood, stool (01/06/2017 3:00 AM) Component Value Ref Range Occult blood, stool Negative for occult blood. Comment: Specimen Information Specimen Source: Stool Specimen Site: Nonpreserved Specimen Performing Laboratory Stool - Nonpreserved [facility] DEPARTMENT OF PATHOLOGY AND [address] [address] * Urinalysis screen and microscopy, with reflex [...] None seen UA Specimen Performing Laboratory Urine [facility] DEPARTMENT OF PATHOLOGY AND [facility] MEDICINE [address] [place] [address] * Gram stain (01/05/2017 8:26 PM) Component Value Ref Range Gram stain result Few WBC's No organisms seen Comment: Specimen Information Specimen Source: Urine Specimen Site: See UA Specimen Performing Laboratory Urine [facility] DEPARTMENT OF PATHOLOGY AND [facility] MEDICINE [address] [place] [address] * Prepare RBC, 2 Units (01/05/2017 8:26 PM) Component Value Ref Range Product name Red Blood Cells -1, Leukored Unit number [id number] Product code [id number] Dispense status Transfused Blood expiration date 20170205 Blood type code 5100 Blood type O POSITIVE Product name Red Blood Cells -1, Leukored Unit number [id number] Product code [id number] Dispense status Transfused Blood expiration date 20170205 Blood type code 5100 Blood type O POSITIVE Specimen Performing Laboratory [facility] DEPARTMENT OF PATHOLOGY AND [facility] MEDICINE [address] [place] [address] * Type and screen (01/05/2017 8:26 PM) Component Value Ref Range ABO grouping O Rh type POS Antibody screen (gel) NEG Specimen Performing Laboratory Blood [facility] [place]MENT [place] [address] * Urine culture (01/05/2017 8:26 PM) Component Value Ref Range Urine culture isolate Gram negative rods <10-1 cfu/ml (A) Comment: Specimen Information Specimen Source: Urine Specimen Site: See UA Urine culture isolate Mixed Gram positive damián 10-5 cfu/ml (A) Specimen Performing Laboratory Urine [facility] DEPARTMENT OF PATHOLOGY AND GENOMIC MEDICINE [address] [place] [address] * XR Lumbar Spine 2 Or 3 Vw (11/20/2016 11:21 AM) Specimen [place] [address] Narrative EXAMINATION: XR LUMBAR SPINE 2 OR [...] interbody space. 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 [id number] Procedure Note Interface, Radiology Results Incoming - [...] interbody space. 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 [facility]-[id number] * MRI Lumbar Spine Wo Contrast (11/20/2016 10:24 AM) Specimen Performing Laboratory [facility] [address] [place] [address] Narrative EXAMINATION: MRI LUMBAR SPINE WO CONTRAST [...] left at L3-L4 and bilaterally at L4-L5. [id number] Procedure Note Hm Interface, Radiology Results Incoming [...] left at L3-L4 and bilaterally at L4-L5. [id number] * Hand/Upper Extremity Injection/Arthrocentesis (08/11/2016 9:58 AM) Narrative Jas Shirley MD 08/11/20169:58 AM Hand/Upper Extremity Injection/Arthrocentesis [...] immediate complications Injection Type: tendon sheath after 07/06/2016 Insurance Payer Benefit Subscriber ID Type Phone Address Plan / Group BCBS BCBS xxxxxxxxxxxx PPO CHOICE PPO/[employer] [place] PPO
[2017-07-07] MEDS ORDERED: LIDOCAINE 2% /EPINEPHRINE 20 ML SDV INJ STA (12:02)
[2017-07-07] MEDS ORDERED: NEOMYCIN/POLYMYX/BACITR OINT 0.9 GM PKT TOP STA (12:02)
[2017-07-07] MEDS ORDERED: HYDROCODONE/APAP 5MG-325MG TAB PO ONE (12:15)
[2017-07-07 13:45] VITALS: BP 125/86
== END 2017-07-07 13:30 | disposition home or self-care (01) ==
LOC: ER 11:31
DX: S51.011A Laceration without foreign body of right elbow, initial encounter (principal); S81.812A Laceration without foreign body, left lower leg, initial encounter; W01.0XXA Fall on same level from slipping, tripping and stumbling without subsequent striking against object, initial encounter; Y92.008 Other place in unspecified non-institutional (private) residence as the place of occurrence of the external cause
CPT/HCPCS: 12044; 99284; J2001

== ENCOUNTER 2017-07-09 10:21 | Emergency (ER) | payer BC ==
[~2017-07-09] VITALS: Ht 172.7 cm; Wt 104.3 kg
--- OUTSIDE RECORDS SUMMARY | 2017-07-09 10:23 | XMS REPORT | Clinical Summary ---
Author Author [facility] Organization [facility] Address Unknown Phone Unavailable Care Team Providers Care Wool Sampler Name Role Phone Yifan Nielsen MD PCP [...] hand (Primary Dx); Tendinitis of finger 04/01/2017 [facility] Orthopedic Surgery Jas Shirley MD Encounter 04/01/2017 Anesthesia Orthopedic Surgery Luigi Jones, Event CHROMIUM PLATER 04/01/2017 Procedure Pass Orthopedic Surgery 04/01/2017 Surgery Orthopedic Surgery Jas Shirley MD RIGHT MIDDLE FINGER TRIGGER RELEASE AND ANY INDICATED PROCEDURES 03/23/2017 Office Visit Orthopedic Surgery Jas Shirley MD Trigger middle finger of right hand (Primary Dx); Tendinitis of finger 01/05/2017 [facility] General Internal Medicine Yaya Graham MD Iron deficiency anemia - Encounter due to chronic blood loss 01/07/2017 (Primary Dx) 11/24/2016 Telephone Neurosurgery Rafiq Kasper MD 11/20/2016 [facility] Radiology Rafiq Kasper MD Osteoarthritis [...] Pain of finger of right hand after 07/08/2016 Family History Medical History Relation Name Comments [...] Taken Blood Pressure 100/55 04/01/2017 9:15 AM TANNING DRUM OPERATOR Pulse 69 04/01/2017 9:25 AM TANNING DRUM OPERATOR Temperature 36.4 C (97.5 F) 04/01/2017 9:25 AM TANNING DRUM OPERATOR Respiratory Rate 16 04/01/2017 9:25 AM TANNING DRUM OPERATOR Oxygen Saturation 94% 04/01/2017 9:25 AM TANNING DRUM OPERATOR Inhaled Oxygen - - Concentration Weight 107 kg (234 lb 12.8 oz) 01/05/2017 4:55 PM CDT Height 172.7 cm (5' 8") 04/01/2017 7:44 AM TANNING DRUM OPERATOR Body Mass Index - - Plan of Treatment Health Maintenance Due Date Last Done Comments ZOSTER VACCINE 1999 PNEUMOCOCCAL 08/23/2004 POLYSACCHARIDE VACCINE AGE 65 AND OVER PNEUMOCOCCAL-13 08/23/2004 INFLUENZA VACCINE 11/17/2016 02/26/2016, 03/06/2014 Procedures Procedure Name Priority Date/Time Associated Diagnosis Comments ANESTHESIA PERIPHERAL Routine 04/01/2017 BLOCK 8:12 AM TANNING DRUM OPERATOR Procedure Note - Luigi Jnoes CRNA - 04/01/2017 8:11 AM TANNING DRUM OPERATOR Peripheral Block Performed by: LUIGI JONES Authorized [...] oximetry and blood pressure monitoring Block Type: [place] block Laterality : Right Injection Technique: Single [...] TRIGGER TRIGGER RELEASE AND ANY 7:30 AM TANNING DRUM OPERATOR FINGER M65.331 INDICATED PROCEDURES MI INJECT TENDON Routine 08/11/2016 Trigger middle finger of Results for this SHEATH/LIGAMENT 9:58 AM CDT right hand procedure are in the Tendinitis of finger results section. after 07/08/2016 Results * Partial thromboplastin time, activated (04/01/2017 2:15 AM) Component Value Ref Range PTT 33.0 23.0 - 36.0 sec Comment: PTT therapeutic range for unfractionated heparin is 61.0-112.0 seconds which corresponds to Anti-Xa 0.3-0.7 U/ml. Specimen Performing Laboratory Blood [facility] [address] [place] [address] * Prothrombin time with INR (04/01/2017 2:15 [...] vein thrombosis/pulmonary embolism. Specimen Performing Laboratory Blood [facility] [address] [place] [address] * Hemoglobin & hematocrit (01/07/2017 5:30 AM) Component Value Ref Range HGB 8.2 (L) 14.0 - 18.0 g/dL HCT 27.1 (L) 41.0 - 51.0 % Specimen Performing Laboratory Blood [facility] [address] [place] [address] * Pv duplex venous lower extremity (01/06/2017 8:49 AM) Specimen Performing Laboratory [facility] [address] [place] [address] Narrative Vascular Ultrasound Laboratory Lower Extremity Venous Report [address] [place] [address] Pat.Name:TAYLOR SHEN Pat.ID:[id number] St.Date: 01/06/2017 Refer.MD:YAYA GRAHAM MD Exam Time: 8:11:00 AMStudy Type:LE Venous Weight:234lb DOBAge:1940 ,76Y Sex: MALESonogrphr: Ashley Carrasco RVT Pat. Stat.:Inpatient Room:[address] TapeVol: , CPT - 4: 11596 Echo Event ID:[id number] Order ID:[id number] Reason for Study:Bilateral leg swelling. Race:C SUMMARY: [...] Ultrasound Laboratory Lower Extremity Venous Report [address] [place] [address] Pat.Name: TAYLOR SHEN.ID: [id number] .Date: 01/06/2017 Refer.MD: YAYA GRAHAM MD Exam Time: 8:11:00 AM Study Type:LE Venous Weight: 234lb Age: 5 1940,76Y Sex: MALE Sonogrphr: JIAN Parker. Stat.:Inpatient Room: [address] Vol: YM, CPT - 4: 93015 Echo Event ID:[id number] Order ID: [id number] Reason for Study:Bilateral leg swelling. Race: C [...] Polychromasia Moderate Ovalocytes Moderate Specimen Performing Laboratory [facility] [address] [place] [address] * CBC with platelet and differential (01/06/2017 [...] - 1.0 % Specimen Performing Laboratory Blood [facility] [address] [place] [address] * Estimated GFR (01/06/2017 4:00 AM) Component [...] and Americans. Specimen Performing Laboratory Plasma specimen [facility] [address] [place] [address] * Basic metabolic panel (01/06/2017 4:00 AM) [...] 10.2 mg/dL Specimen Performing Laboratory Plasma specimen [facility] [address] [place] [address] * Occult blood, stool (01/06/2017 3:00 AM) Component Value Ref Range Occult blood, stool Negative for occult blood. Comment: Specimen Information Specimen Source: Stool Specimen Site: Nonpreserved Specimen Performing Laboratory Stool - Nonpreserved [facility] OF PATHOLOG[facility] AND [address] [address] * Urinalysis screen and microscopy, with reflex [...] None seen UA Specimen Performing Laboratory Urine [facility] [address] [place] [address] * Gram stain (01/05/2017 8:26 PM) Component Value Ref Range Gram stain result Few WBC's No organisms seen Comment: Specimen Information Specimen Source: Urine Specimen Site: See UA Specimen Performing Laboratory Urine [facility] [address] [place] [address] * Prepare RBC, 2 Units (01/05/2017 8:26 PM) Component Value Ref Range Product name Red Blood Cells -1, Leukored Unit number [id number] Product code [id number] Dispense status Transfused Blood expiration date 20170205 Blood type code 5100 Blood type O POSITIVE Product name Red Blood Cells -1, Leukored Unit number [id number] Product code [id number] Dispense status Transfused Blood expiration date 20170205 Blood type code 5100 Blood type O POSITIVE Specimen Performing Laboratory [facility] [address] [place] [address] * Type and screen (01/05/2017 8:26 PM) Component Value Ref Range ABO grouping O Rh type POS Antibody screen (gel) NEG Specimen Performing Laboratory Blood [facility] [place] [address] * Urine culture (01/05/2017 8:26 PM) Component Value Ref Range Urine culture isolate Gram negative rods <10-1 cfu/ml (A) Comment: Specimen Information Specimen Source: Urine Specimen Site: See UA Urine culture isolate Mixed Gram positive damián 10-5 cfu/ml (A) Specimen Performing Laboratory Urine [facility] [address] [place] [address] * XR Lumbar Spine 2 Or 3 Vw (11/20/2016 11:21 AM) Spec[place] [address] Narrative EXAMINATION: XR LUMBAR SPINE 2 OR [...] interbody space. 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 [id number] Procedure Note Interface, Radiology Results Incoming - [...] interbody space. 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 [id number] * MRI Lumbar Spine Wo Contrast (11/20/2016 10:24 AM) Specimen Performing Laboratory [facility] [address] [place] [address] Narrative EXAMINATION: MRI LUMBAR SPINE WO CONTRAST [...] left at L3-L4 and bilaterally at L4-L5. [id number] Procedure Note Hm Interface, Radiology Results Incoming [...] left at L3-L4 and bilaterally at L4-L5. [id number] * Hand/Upper Extremity Injection/Arthrocentesis (08/11/2016 9:58 AM) [...] immediate complications Injection Type: tendon sheath after 07/08/2016 Insurance Payer Benefit Subscriber ID Type Phone Address Plan / Group BCBS BCBS xxxxxxxxxxxx PPO CHOICE PPO/[employer] PPO
--- OUTSIDE RECORDS SUMMARY | 2017-07-09 10:23 | XMS REPORT | Continuity of Care Document ---
Author Author [facility] Organization [facility] Address [address] [place] [address] Phone Unavailable Care Team Providers Care Rib Stiffener And Heel Dipper Name Role Phone NONSTAFF PCP Unavailable Insurance Providers Guarantor Toñito Shen Address [address] [place] [address] Email [email or web address] [email or web address] Policy Number [id number] Subscriber's Name Daisy Shen Relationship 01 Group Number [id number] Group Name [employer] Effective Date 06 Advance Directives Directive Response Recorded Date/Time Does the patient have an advance directive? No 04/18/13 2:59pm If yes, is advance directive on file with [facility]? No 12/21/12 8:11am If not on file with [facility] will patient provide a copy? No 12/21/12 8:11am Problems No problem information available. Medications Current [...] information available. Plan of Care Discharge Date 07/07/17 1:30pm Disposition HOME, SELF-CARE Condition at Discharge Stable Instructions/Education Provided Skin Avulsion Contusion Laceration Fall Prevention Prescriptions See Medication Section Referrals Dana Nielsen Order Date: Call for an appointment Additional Instructions/Education Take the prescribed medication as directed. Follow up with the your PCP for suture removal and evaluation of wound healing, call next business day to schedule your follow-up appointment. Return to the ER for any shortness of breath, wound pain, redness, fever, streaking from wounds, chest pain, abdominal pain,increased pain to injured extremity or any new concerns. Functional Status No functional status information available. Allergies, Adverse Reactions, Alerts No known allergies. Immunizations No immunization information available. Vital Signs Acute Vital Signs Vital Response Date/Time Pulse Pulse Rate (adult) 101 bpm (60 - 90) 07/07/2017 1:45pm Respiratory Rate 20 bpm (12 - 24) 07/07/2017 1:45pm Blood Pressure 125/86 mm Hg 07/07/2017 1:45pm Height 5 ft 8 in 07/07/2017 11:35am Weight 230 lb 07/07/2017 11:35am Body Mass Index 35.0 kg/m^2 07/07/2017 11:35am Results No relevant diagnostic test, laboratory data and/or discharge summary information available. Procedures Procedure Status Date Provider(s) RPR S/N/AX/GEN/TRNK 2.5CM/< Completed 05/26/17 ALEKSANDR SMITH MD Computed tomography of brain without radiopaque contrast Active 05/26/17 ALEKSANDR SMITH MD Encounters Encounter Location Arrival/Admit Date Discharge/Depart Date Attending Provider Departed Emergency Room [facility] 07/07/17 11:31am 07/07 1:30pm SILVINO CHAPIN MD Departed Emergency Room [facility] 05/26/17 10:05pm 05/26 11:08pm ALEKSANDR SMITH MD
[2017-07-09 11:44] LABS: BASOPHILS % 0.3 % (0.0-1.0); EOSINOPHILS # (AUTO) 0.1 (0.0-0.4); EOSINOPHILS % 1.3 % (0.0-6.0); HEMOGLOBIN 10.4 g/dL (14.0-18.0); LYMPHOCYTES # (AUTO) 0.5 (1.0-3.2); LYMPHOCYTES % 7.5 % (18.0-39.1); MEAN CORPUSCULAR HGB CONC 32.5 g/dL (31-35); MEAN CORPUSCULAR VOLUME 95.2 fL (81-99); MONOCYTES # (AUTO) 0.8 (0.2-0.8); MONOCYTES % 12.4 % (4.4-11.3); NEUTROPHILS # (AUTO) 4.9 (2.1-6.9); NEUTROPHILS % 77.9 % (38.7-80.0); PLATELET COUNT 149 x10e3/uL (140-360); RED BLOOD COUNT 3.36 x10e6/uL (4.3-5.7); RED CELL DISTRIBUTION WIDTH 15.8 % (11.7-14.4)
[2017-07-09 11:57] LABS: INR 4.51
[2017-07-09 11:58] LABS: PARTIAL THROMBOPLASTIN TIME 77.9 seconds (23.8-35.5)
[2017-07-09 12:03] LABS: ANION GAP 12.6 mmol/L (8-16); BLOOD UREA NITROGEN 22 mg/dL (7-26); BUN/CREATININE RATIO 22 (6-25); CALCIUM 8.7 mg/dL (8.4-10.2); CARBON DIOXIDE 25 mmol/L (22-29); CHLORIDE 102 mmol/L (98-107); EST GLOMERULAR FILTRATION RATE > 60 ML/MIN (60-); GLUCOSE 112 mg/dL (74-118); POTASSIUM 4.6 mmol/L (3.5-5.1); SODIUM 135 mmol/L (136-145)
[2017-07-09 12:19] LABS: PROTHROMBIN TIME 40.2 seconds (11.9-14.5)
== END 2017-07-09 12:50 | disposition home or self-care (01) ==
LOC: ER 10:21
DX: S51.011A Laceration without foreign body of right elbow, initial encounter (principal); S81.812A Laceration without foreign body, left lower leg, initial encounter; I25.10 Atherosclerotic heart disease of native coronary artery without angina pectoris; K21.9 Gastro-esophageal reflux disease without esophagitis; Z87.19 Personal history of other diseases of the digestive system; Z95.5 Presence of coronary angioplasty implant and graft
CPT/HCPCS: 36415; 80048; 85025; 85610; 85730; 99284